=== PATIENT | female | born 2000 | race Caucasian/White ===

== ENCOUNTER 2025-02-19 14:30 | Emergency (ER) | payer OTHER ==
[2025-02-19 14:37] VITALS: PULSE 86; RESP 16; TEMP 97.8
--- NOTE | 2025-02-19 14:58 | ED ---
Fall HPI - General Chief Complaint: Fall Stated Complaint: Hypertension Time Seen by Provider: 02/19/25 14:38 Source: patient, EMS, RN notes reviewed Mode of arrival: EMS - History of Present Illness Initial Comments: 24-year-old female with no reported medical conditions presenting to the emergency department via EMS from [facility] after a fall. She states that she was getting out of the shower when she slipped and hit the back of her head on the shower wall. She denies loss of consciousness at the time of the fall. Currently states that she has mild thoracic back pain. She denies headache, neck pain, visual disturbances, altered mental. Patient reports that she has a history of hypertension and a family history of hypertension and used to be on medications for this however is currently not taking medications. She denies chest pain, heart palpitations. - Related Data Allergies Allergy/AdvReac Type Severity Reaction Status Date / Time No Known Allergies Allergy Verified 02/19/25 14:31 Review of Systems ROS Statement: Those systems with pertinent positive or pertinent negative responses have been documented in the HPI. ROS Other: All systems not noted in ROS Statement are negative. Past Medical History Past Medical History: No Reported History Past Surgical History: No Surgical Hx Reported Smoking Status: Current every day smoker Past Alcohol Use History: None Reported Past Drug Use History: Heroin General Exam Limitations: no limitations General appearance: alert, in no apparent distress Head exam: Present: atraumatic, normocephalic, normal inspection Eye exam: Present: normal appearance, PERRL, EOMI. Absent: scleral icterus, conjunctival injection, periorbital swelling Neck exam: Present: normal inspection. Absent: tenderness, meningismus, lymphadenopathy Respiratory exam: Present: normal lung sounds bilaterally. Absent: respiratory distress, wheezes, rales, rhonchi, stridor Cardiovascular Exam: Present: regular rate, normal rhythm, normal heart sounds. Absent: systolic murmur, diastolic murmur, rubs, gallop, clicks GI/Abdominal exam: Present: soft, normal bowel sounds. Absent: distended, tenderness, guarding, rebound, rigid Extremities exam: Present: normal inspection, full ROM, normal capillary refill. Absent: tenderness, pedal edema, joint swelling, calf tenderness Back exam: Present: normal inspection Skin exam: Present: warm, dry, intact, normal color. Absent: rash Course Vital Signs 02/19/25 02/19/25 14:32 15:33 Temperature 97.8 F Pulse Rate 86 Respiratory 16 Rate Blood Pressure 151/111 155/110 O2 Sat by Pulse 99 Oximetry Medical Decision Making - Medical Decision Making Was pt. sent in by a medical professional or institution (, [facility], BIOTECHNICIAN, urgent care, hospital, or care home...) When possible be specific @ -[facility] after a fall. Did you speak to anyone other than the patient for history (EMS, parent, family, police, friend...)? What history was obtained from this source @ -No Did you review nursing and triage notes (agree or disagree)? Why? @ -I reviewed and agree with nursing and triage notes Were old charts reviewed (outside hosp., previous admission, EMS record, old EKG, old radiological studies, urgent care reports/EKG's, care home records)? Report findings @ -No old charts were reviewed Differential Diagnosis (chest pain, altered mental status, abdominal pain women, abdominal pain men, vaginal bleeding, weakness, fever, dyspnea, syncope, headache, dizziness, GI bleed, back pain, seizure, CVA, palpatations, mental health, musculoskeletal)? @ -Differential Musculoskeletal Muscular strain, contusion, ligament sprain, fracture, arthritis, septic arthritis, bursitis, cellulitis, muscle spasm, nerve compression, DVT, arterial occlusion, herpes zoster, electrolyte abnormality, tumor.... This is not meant to be in all inclusive list EKG interpreted by me (3pts min.). @ -None X-rays interpreted by me (1pt min.). @ -X-ray imaging of the thoracic spine reveals no acute process. CT interpreted by me (1pt min.). @ -None done U/S interpreted by me (1pt. min.). @ -None done What testing was considered but not performed or refused? (CT, X-rays, U/S, labs)? Why? @ -None What meds were considered but not given or refused? Why? @ -None Did you discuss the management of the patient with other professionals (professionals i.e. [facility] Reina, BIOTECHNICIAN, lab, RT, psych nurse, social and political studies professor, chemical cell changer, teacher, sustainability officer, case filler)? Give summary @ -No Was smoking cessation discussed for >3mins.? @ -No Was critical care preformed (if so, how long)? @ -No Were there social determinants of health that impacted care today? How? (Homelessness, low income, unemployed, alcoholism, drug addiction, transportation, low edu. Level, literacy, decrease access to med. care, usp, rehab)? @ -No Was there de-escalation of care discussed even if they declined (Discuss DNR or withdrawal of care, Hospice)? DNR status @ -No What co-morbidities impacted this encounter? (DM, HTN, Smoking, COPD, CAD, Cancer, CVA, ARF, Chemo, Hep., AIDS, mental health diagnosis, sleep apnea, mo rbid obesity)? @ -None Was patient admitted / discharged? Hospital course, mention meds given and route, prescriptions, significant lab abnormalities, going to OR and other pertinent info. @ -Discharge. 24-year-old female presenting after a fall. Patient is provided with Tylenol for pain. xray of the thoracic spine is unremarkable. Patient remains mildly hypertensive and is provided with IM injection of hydralazine as instructed follow-up with PCP after discharge from [facility]. Patient stable for discharge. Case discussed with Dr. Kaufman Undiagnosed new problem with uncertain prognosis? @ -No Drug Therapy requiring intensive monitoring for toxicity (Heparin, Nitro, Insulin, Cardizem)? @ -No Were any procedures done? @ -No Diagnosis/symptom? @ -fall, hypertension Acute, or Chronic, or Acute on Chronic? @ -acute Uncomplicated (without systemic symptoms) or Complicated (systemic symptoms)? @ -uncomplicated Side effects of treatment? @ -No Exacerbation, Progression, or Severe Exacerbation? @ -No Poses a threat to life or bodily function? How? (Chest pain, USA, SD, pneumonia, PE, COPD, DKA, ARF, appy, cholecystitis, CVA, Diverticulitis, Homicidal, Suicid al, threat to staff... and all critical care pts) @ -No Disposition Clinical Impression: Fall, Hypertension, Strain of thoracic back region Disposition: HOME SELF-CARE Condition: Good Instructions (If sedation given, give patient instructions): Hypertension (ED) Additional Instructions: Please return to the Emergency Department if symptoms worsen or any other concerns. Is patient prescribed a controlled substance at d/c from ED?: No Referrals: None,Stated [Primary Care Provider] - 1-2 days Time of Disposition: 16:05
--- NOTE | 2025-02-19 15:28 | XR ---
EXAMINATION TYPE: XR thoracic spine 2V DATE OF EXAM: 02/19/2025 3:08 PM COMPARISON: None. CLINICAL INDICATION: Female, 24 years old with history of fall, pain; PHH, pain TECHNIQUE: XR thoracic spine 2V views of the spine in Frontal and lateral projections. FINDINGS: No evidence of acute fracture. There is no evidence of significant disc space narrowing. Questionabl e mild height loss at T11 could be projectional related. Remaining thoracic spine vertebral body heig hts appear maintained. There is normal alignment of the thoracic vertebral bodies. IMPRESSION: No convincing radiographic evidence of acute osseous pathology. [facility], , 02/19/2025 3:26 PM
[2025-02-19] MEDS: ACETAMINOPHEN TAB 500 MG TAB PO STA (15:30)
[2025-02-19] MEDS: hydrALAZINE HCL 20 MG/ML 1 ML VIAL IM STA (16:13)
[2025-02-19 16:45] VITALS: BP 185/125
== END 2025-02-19 17:04 | disposition home or self-care (01) ==
LOC: EC 14:30
DX: S29.012A Strain of muscle and tendon of back wall of thorax, initial encounter (principal); I10 Essential (primary) hypertension; F17.200 Nicotine dependence, unspecified, uncomplicated; W18.2XXA Fall in (into) shower or empty bathtub, initial encounter
CPT/HCPCS: 72070; 99283; 96372; J0360